=== PATIENT | male | born 1990 | race African-American/Black ===

== ENCOUNTER 2017-11-09 21:54 | Emergency (ER) | payer SELFPAY ==
[~2017-11-09] VITALS: Ht 177.8 cm; Wt 86.4 kg
[2017-11-09 23:25] LABS: APPEARANCE,URINE TURBID (CLEAR); BILIRUBIN,URINE NEGATIVE (NEGATIVE); GLUCOSE, URINE (UA) NEGATIVE (NEGATIVE); KETONES,URINE NEGATIVE (NEGATIVE); LEUKOCYTE ESTERASE ,URINE LARGE (NEGATIVE); NITRATE,URINE NEGATIVE (NEGATIVE); OCCULT BLOOD,URINE SMALL (NEGATIVE); PROTEIN,URINE POS 1+ (NEGATIVE); UROBILINOGEN,URINE 0.2 mg/dL (<=1.0)
[2017-11-09 23:37] LABS: BACTERIA,URINE Rare /HPF (None Seen); SQUAMOUS EPITHELIAL CELL,UR None Seen /LPF (None Seen); WBC,URINE >100 /HPF (0-5)
[2017-11-10] MEDS ORDERED: CefTRIAXone SODIUM 1 GM/VIAL IM ONE (01:30)
[2017-11-10] MEDS ORDERED: AZITHROMYCIN 250 MG TABLET PO ONE (01:30)
[2017-11-10] MEDS ORDERED: LIDOCAINE 1% 10 ML VIAL INJ ONE (01:45)
[2017-11-10] MEDS ORDERED: LIDOCAINE/PF 1% 2 ML VIAL IM ONE (01:45)
[2017-11-10 02:02] VITALS: BP 132/81
== END 2017-11-10 02:06 | disposition home or self-care (01) ==
LOC: EMS 21:55
DX: N34.2 Other urethritis (principal); F17.210 Nicotine dependence, cigarettes, uncomplicated
CPT/HCPCS: 81001; 87086; 96372; 99284; J0696; J3490